=== PATIENT | male | born 1935 | race Caucasian/White ===

== ENCOUNTER → 2016-06-15 | Outpatient (CLI) | payer OTHER, MEDICARE ==
[2015-12-25 11:00] VITALS: BP 120/58
[~2016-06-15] MED LIST: ACET500T33 PO; AMLO5TAB2 PO; ASPI325T4 PO; ASPI81TA2 PO; ATORVASTATIN CA80 MG PO; BYSTOLIC5 MG PO; CELE200C PO; CETI10TA22 PO; EZET10TA3 PO; FERR324T5 PO; FERR325T72 PO; FLUT1DIS3 IH; GUAI600T38 PO; METF500T4 PO; METO100T5 PO; METO37.5 PO; MULT-658 PO; OXYC5TAB PO; PANT40TA3 PO; TAMS0.4C97 PO; VALS160T3 PO; VALS1TAB14 PO; WARF2TAB PO; ZOLP5TAB5 PO
--- NOTE | 2016-06-15 17:17 | KCIC ---
PROCEDURE MRI of the lumbar spine without contrast 06/15/2016 HISTORY Severe low back pain which radiates down the right leg for several years which is worsening. TECHNIQUE Unenhanced T1 weighted, T2 weighted and inversion recovery sagittal and T1 weighted and T2 weighted axial images of the lumbar spine were obtained. FINDINGS Comparison is made to the patient's CT scan of abdomen and pelvis dated 12/29/2015. For the purposes of this dictation 5 lumbar vertebrae have been assumed. The last reasonably well-defined lumbar appearing disc space will be referred to as L5-S1. A hypoplastic disc is seen at S1-2. Very mild S-shaped curvature of the thoracolumbar spine is seen. Mild anterolisthesis of L4 in relation to L5 is noted. Degenerative signal changes are seen involving all of the discs of the lower thoracic and throughout the lumbar spine. Degenerative signal changes are seen within the marrow surrounding these discs. Loss of height of the L4-5 and L5-S1 discs is noted. The conus medullaris is normal in position and signal characteristics. A complex appearing high signal intensity lesion is seen projecting laterally from the mid/lower aspect of the left kidney on the T1 weighted and T2 weighted images. This is incompletely evaluated on this study. It measures approximately 7 centimeters in greatest diameter. It likely represents a resolving hematoma. At the L1-2 disc space there is a mild generalized disc bulge. This is eccentric to the right. Degenerative changes are seen involving the facet joints bilaterally. These findings efface the anterior CSF without resulting in significant central spinal canal or neural foraminal stenosis. At the L2-3 and L3-4 disc spaces there are minimal generalized disc bulges. Degenerative changes are seen involving the facet joints bilaterally. There is mild ligamentum flavum hypertrophy bilaterally. These findings when combined do not result in significant central spinal canal or neural foraminal stenosis. At the L4-5 disc space there is moderate generalized disc bulge. This is eccentric to the left. Degenerative changes are seen involving the facet joints bilaterally. There is moderate ligamentum flavum hypertrophy bilaterally. Right-sided facet joint effusion is noted. These findings when combined result in severe left greater than right central spinal canal stenosis. Mild to moderate left greater than right neural foraminal stenosis is seen. At the L5-S1 disc space there is a moderate generalized disc bulge. This is eccentric to the right. Degenerative changes are seen involving the facet joints bilaterally. There is moderate ligamentum flavum hypertrophy bilaterally. These findings when combined result in mild to moderate right greater than left central spinal canal stenosis. Moderate to severe right neural foraminal stenosis is seen. The left neural foramina is patent. IMPRESSION 1. The changes of degenerative disc disease are seen throughout the lumbar spine. These findings result in severe left greater than right central spinal canal stenosis with mild to moderate left greater than right neural foraminal stenosis at L4-5 and mild to moderate right greater than left central spinal canal stenosis with moderate to severe right neural foraminal stenosis at L5-S1. Electronically signed by: Jorden Caballero MD (Jun 15, 2016 17:16:03)
== END | disposition home or self-care (01) ==
LOC: KCIC MRI 15:11
PROVIDERS: ATTEND Specialist
DX: M54.5 Low back pain (principal); M79.604 Pain in right leg; M51.36 Other intervertebral disc degeneration, lumbar region; M48.06 Spinal stenosis, lumbar region
CPT/HCPCS: 72148

== ENCOUNTER → 2016-07-04 | Outpatient (CLI) | payer OTHER ==
[2015-12-25 11:00] VITALS: BP 120/58
--- NOTE | 2016-07-05 02:37 | PAIN ---
DATE OF SERVICE: 07/04/2016 INITIAL CONSULTATION FOR PAIN CLINIC CHIEF COMPLAINT: Low back, right lower extremity pain. HISTORY OF PRESENT ILLNESS: This is an 80-year-old male who presents with history of pain for many years, worse now over the past few months in the right lateral and anterior thigh as well as in the low back on the right side greater than left, some pain in the left leg, but much more noticeable on the right side. The patient reports it is much worse with activity. He has been limiting his activity to a fair extent because of the pain, worse with walking, standing with some relief of the pain with sitting. The patient reports when he is sitting his pain is 0 on a scale of 10, when he is up walking and ambulating it can be as high as a 6. The patient reports he can go about 100 yards before he has to stop and rest secondary to the pain in his right leg, mostly in the lateral and anterior aspect of the right thigh, also some pain in the lower leg as he walks further. The patient reports no loss of motor function. No numbness or tingling in the legs, but significant radiation of pain, worse with activity. It is constant, sharp. TENS unit has been helping with the pain ____ he reports on his low back on the right side. Again, the pain is worse in the morning. It was worse after surgery, he had a mitral valve replacement in 08/2015. The patient reports it does not awaken him from sleep at night, does not affect his bowel or bladder control, but does affect his ability to walk significantly. He has had physical therapy in the past and is still doing stretching and strengthening exercises and walking as much as he can, but the pain is limiting his activity to a significant extent. The patient reports his disability rate from 0-10, 10 being the worst, is a 5 with family and home responsibilities, 4 with recreation and social activity, 2 with occupation and 0 with all other categories. The patient did have MRI scan of the lumbar spine showing changes of degenerative disk disease throughout the lumbar spine resulting in severe left greater than right central spinal canal stenosis with [id number] left greater than right neural foraminal stenosis at L4-L5 and [id number] right greater than left ____ foraminal spinal canal stenosis and [id number] right neural foraminal stenosis at L5-S1. The patient reports no loss of motor function, but significant fatigability with ambulation on the right leg. PAST MEDICAL HISTORY: Significant for borderline diabetes, cataracts, hypertension, rheumatic fever at age 4, AV malformation, difficulty urinating, arthritis. PREVIOUS SURGERY: Includes mitral valve replacement in 08/2015, cataract extractions in the past, cervical herniated disk with anterior cervical diskectomy 15 years ago, previous mastoidectomy and tonsillectomy. CURRENT MEDICATIONS: Include Flomax, daily baby aspirin, Diovan, Toprol and Protonix. ALLERGIES: THE PATIENT IS ALLERGIC TO AUGMENTIN WHICH CAUSES HIVES. FAMILY HISTORY: Shows Alzheimer's disease, diabetes, hypertension and spinal arthritis. SOCIAL HISTORY: The patient drinks alcohol about 1-2 ounces daily, does not smoke. He is and lives locally in [place], [place]. REVIEW OF SYSTEMS: The patient's review of systems is positive for those items mentioned in history of present illness. All systems were reviewed and otherwise negative. It is complete, full and well documented on the patient's chart. PHYSICAL EXAMINATION: VITAL SIGNS: The patient's blood pressure 135/71, pulse 59, respirations 18, temperature 98.0 degrees Fahrenheit. Height is 5 feet 6 inches, weight is 153 pounds. GENERAL: The patient is awake, alert, oriented, appropriate, very pleasant demeanor. HEENT: Head shows normocephalic, atraumatic. Extraocular movements are intact and symmetrical. The patient wears eye glasses. Oral cavity, mucous membranes are moist and pink. Dentition is intact. NECK: Shows anterior throat supple without palpable lymphadenopathy noted. Swallow reflex is symmetrical. Neck shows full rotational motion of cervical spine, both laterally as well as extension and flexion without difficulty. CHEST: Shows normal on inspection. Breath sounds clear to auscultation bilaterally. Well-healed median sternotomy scar. HEART: Shows S1 and S2 clear. No murmurs auscultated. ABDOMEN: Soft, nontender, nondistended. No palpable organomegaly is noted. No rebound or guarding demonstrated. BACK: Shows spine grossly in the midline with normal-appearing thoracic kyphosis and lumbar lordotic curvatures. Lumbar paraspinous musculature shows symmetrical on inspection. No atrophy, hypertrophy, shows only diffuse tender with palpation in the lumbar paraspinous musculature in the lower lumbar distribution, but again very mild and only diffusely. Muscle girth is normal and symmetrical and firm with palpation. EXTREMITIES: The patient's lower extremities show deep tendon reflexes at 1+ in the patellar and tendo calcaneus tendons. Motor exam is strong with 5/5 dorsiflexion, extension, quadriceps and hamstring flexion and equal. The patient's peripheral pulses are 1+ on the right posterior tibial and dorsalis pedis and 2+ on left posterior tibial and dorsalis pedis. No peripheral edema is noted. No clubbing, no cyanosis. Lower extremities are warm and dry to touch, equal in color and appearance. IMPRESSION: 1. This is an 80-year-old male with long history of low back pain, worse over the past few months, radiating to the right lower extremity in a radicular fashion. 2. MRI scan as noted. 3. Arthritis. 4. Hypertension. 5. Borderline diabetes. PLAN: Options were discussed with the patient including conservative medical management, physical therapies, interventional techniques. He would like to pursue conservative measures at this time. We discussed trying a Medrol Dosepak and increasing activity with stretching exercises as well as walking. The patient elected to try this first. We will give a Medrol Dosepak to try with instructions, side effects to be aware of discussed, but if not significantly improved, we did discuss a lumbar epidural steroid injection at that time. He can follow up in approximately 2 weeks or sooner if necessary. SHANNAN WEISS MD DR: SHAKIR/hoang JOB#: [id number] / [id number]
== END | disposition home or self-care (01) ==
LOC: PNCL 08:28
PROVIDERS: ATTEND Anesthesiology
DX: M54.5 Low back pain (principal); M79.604 Pain in right leg
CPT/HCPCS: G0463